=== PATIENT | male | born 1965 | race Caucasian/White ===

== ENCOUNTER 2024-05-06 05:58 | Day surgery (SDC) | payer OTHER, SELFPAY ==
[2024-04-23 13:11] VITALS: BMI 24.4
[2024-05-06] VITALS (8 sets, daily range): BP systolic 127–138; BP diastolic 79–91; BMI 24.4
[2024-05-06] MEDS: TYLENOL 1000 MG PO (06:30)
[2024-05-06] MEDS: NORMOSOL-R/PLASMALYTE-A 1000 IV (06:31)
--- NOTE | 2024-05-06 07:09 | W.SUR.PREOP ---
Pre-Operative Surgical Note
-
I have examined this patient prior to the performance of the scheduled procedure.
The patient's condition is unchanged from the time of the current History and
Physical and the patient is able to undergo the scheduled procedure.
--- NOTE | 2024-05-06 07:09 | HP.FOC2 ---
Focused History & Physical
Chief Complaint
HPI:
Chief Complaint: This is a 58-year-old male with a symptomatic right inguinal hernia.
HPI / Indication for Planned Procedure: This is a 58-year-old male with a symptomatic right inguinal hernia, will plan for a robotic right inguinal hernia repair with mesh. Possible left.
Relevant Past Medical History: Negative
Relevant Social History: Negative
Relevant Family History: Negative
Relevant Past Surgical History: Negative
Review of Systems
Review of Pertinent Systems: All Systems Negative
Medication
See Medication form for detailed medications: Yes
Medication List (including Herbals & OTC):
cholecalciferol (vitamin D3) 25 mcg (1,000 unit) tablet (Vitamin D3) 25 mcg PO DAILY 04/29/24
magnesium 200 mg tablet 400 mg PO DAILY 04/29/24
rosuvastatin 10 mg tablet 10 mg PO DAILY 04/29/24
vitamin K2 100 mcg capsule 200 mcg PO DAILY 04/29/24
zinc 50 mg tablet 50 mg PO DAILY 04/29/24
Medications Reviewed: Yes
Allergies and Reactions
Patient has Allergies: Yes
Noted Allergies and Reactions:
Allergy/AdvReac Type Severity Reaction Status Date / Time
No Known Allergies Allergy Verified 05/06/24 06:21
Pertinent Physical Exam
All Other Systems: Negative
Head/Neck: Normal
Diagnosis / Assessment
This is a 58-year-old male with a symptomatic right inguinal hernia, will plan for a robotic right inguinal hernia repair with mesh. Possible left.
Plan / Procedure
This is a 58-year-old male with a symptomatic right inguinal hernia, will plan for a robotic right inguinal hernia repair with mesh. Possible left.
Anesthesia/Sedation to be done by Anesthesia Provider: Yes
--- NOTE | 2024-05-06 08:48 | W.IMMPOSTOP ---
Surgical Immed Post Op Note
-
Primary Surgeon: Martinez Zapata MD
Assisting Surgeon: None
Pre-op Diagnosis: Right inguinal hernia
Post-op Diagnosis: Same
Procedure Performed: Robotic right inguinal hernia repair with mesh
Anesthesia Type: General
Specimen / Cultures: None
Estimated Blood Loss: 1 cc
Complications: None
Operative Findings: Pantaloon hernia with both direct and indirect components both lateral to the inferior epigastrics. After reduction and achieving the critical view of the MPO, the space was reinforced with a large right Bard 3D max uncoated
polypropylene mesh. No hernia noted on the left.
--- NOTE | 2024-05-06 08:49 | OR.RPT ---
Operative Report
Operative Report
Patient Name: Harrison Tejeda
: 1965
Date of Operation: 05/06/2024
Preoperative Diagnosis: Reducible Inguinal hernia, right
Postoperative Diagnosis: Same
Procedure(s):
Robotic right inguinal Hernia Repair with mesh, (RANCHO approach)
Surgeon(s):
Dr. Zapata
Top Lift Cutter(s):
YARELI Bishop
Anesthesia: General
Estimated Blood Loss: 1 cc
Urine Output: None
Drains/Lines/Implants: Large 3D Max Bard mid weight uncoated polypropylene mesh
Specimens: None
Indication for surgery: The patient has a history of groin pain and noted on exam to have a right inguinal Hernia. Following review of therapeutic options they have elected to undergo a minimally invasive repair.
Operative Findings: Pantaloon hernia with both direct and indirect components both lateral to the inferior epigastrics. After reduction and achieving the critical view of the MPO, the space was reinforced with a large right Bard 3D max uncoated
polypropylene mesh. No hernia noted on the left.
Details of the operation:
The patient was brought to the Operating Room and placed in the supine position with the arms tucked. IV antibiotics were infused and Venodyne stockings placed. Following uneventful induction of general endotracheal anesthesia, an orogastric tube
were placed. The abdomen was prepped and draped in the usual sterile fashion. The abdomen was entered using a Veress technique which required 1 pass, pneumoperitoneum to 15 mmHg was obtained without difficulty. An 8mm trochar was passed through
the abdominal wall roughly 20 cm cephalad to the inguinal canal. We then confirmed that no inadvertent injury was made while passing the trocar or Veress needle. We then placed two additional 8 mm ports in the left upper and right upper quadrants.
We then docked the robot with a Prograsper in the left hand port and monopolar scissors in the right. No hernia was identified on the left, a right inguinal hernia was readily apparent. We then began by creating a flap at the level of the ASIS
laterally working our way medially to the medial umbilical fold. Staying onto the peritoneum we were able to circumferentially dissect around the hernia sac and and peel it off of the underlying spermatic cord and testicular vessels, taking care to
preserve them. Medially we identified the midline pubis as well as Deejay's ligament and ensured to dissect 2 cm below the pubic rim over the bladder. After exposure of the entire myopectineal orifice we identified and reduced: A very small sized
indirect inguinal hernia, as well as a small direct inguinal hernia, that was of both lateral to the inferior epigastrics. No femoral hernia, or cord lipoma were identified.
We then fixated a large 3D max mesh with a 2-0 Vicryl stitch at coopers medially and superior laterally. The flap was then closed with a running 2-0 barbed monocryl suture ensuring that the tail was cut flush with the medial fat pad so that no
barbs were exposed. During the closure of the flap an Angiocath was inserted and 20 cc of quarter percent Marcaine was instilled. The area in the flap cavity was then evacuated of air confirming that the mesh was flush and there were no folds. A
small rent in the peritoneum was noted and closed with 2-0 Vicryl. All needles and instruments were then removed and the robot was undocked. The abdomen was then desufflated, and pneumoperitoneum evacuated. All skin sites were then closed with 4-0
Monocryl followed by Dermabond. Counts were correct and overall, the patient tolerated the procedure well and was taken to the Recovery Room postoperatively in stable condition.
I was the attending physician and performed the procedure with assistance of the RESEARCH COMPLIANCE SPECIALIST above. I was present for all portions of the case
Martinez Zapata MD
== END 2024-05-06 10:21 | disposition home or self-care (01) ==
LOC: SDS 05:58
PROVIDERS: ATTENDING PHYSICIAN Surgery; FAMILY PHYSICIAN Family Medicine
DX: K40.90 Unilateral inguinal hernia, without obstruction or gangrene, not specified as recurrent (principal)
CPT/HCPCS: 49650; 36415; 93005; C1781